=== PATIENT | male | born 1960 | race Caucasian/White ===

== ENCOUNTER 2017-04-09 18:08 | Emergency (ER) | payer SELFPAY ==
[~2017-04-09 18:08] MED LIST: ERYTHROMYCIN3.5 GM OP; NORCO 5/325 TAB1 TAB PO
== END 2017-04-09 20:42 ==
LOC: EDMED 18:08
PROC: 0HQFXZZ Repair Right Hand Skin, External Approach (ICD-10-PCS; principal; 2017-04-09)
DX: S61.312A Laceration without foreign body of right middle finger with damage to nail, initial encounter (principal); S61.210A Laceration without foreign body of right index finger without damage to nail, initial encounter; Z23 Encounter for immunization; W31.89XA Contact with other specified machinery, initial encounter; Y92.019 Unspecified place in single-family (private) house as the place of occurrence of the external cause